=== PATIENT | male | born 1970 | race African-American/Black ===

== ENCOUNTER 2017-03-03 21:30 | Emergency (ER) | payer OTHER ==
[~2017-03-03] VITALS: Ht 182.9 cm; Wt 102.1 kg
[2017-03-03 21:40] VITALS: BP 110/61
--- NOTE | 2017-03-03 22:51 | NUR ---
PT TAKEN TO BED 3
--- NOTE | 2017-03-03 22:59 | NUR ---
46 Y/O M W/C/O RT ELBOW PAIN, FOR 3 WEEKS NO TRAUMA NOR INJURY. NO S/S OF DISTRESS NOTED. ER MD MADE AWARE.
--- NOTE | 2017-03-03 23:02 | NUR ---
Dr. Paz evaluating patient at bedside.
[2017-03-03] MEDS ORDERED: KETOROLAC 30 MG/ML VIAL IM ONE (23:05)
[2017-03-03] MEDS ORDERED: HYDROcodone/APAP 5/325 MG 1 TAB TAB PO ONE (23:05)
--- NOTE | 2017-03-04 00:15 | NUR ---
X-Ray at bedside.
[2017-03-04 00:47] VITALS: BP 119/75
--- NOTE | 2017-03-04 00:47 | NUR ---
Patient discharged with v/s stable. Written and verbal after care instructions given and explained. Patient alert, oriented and verbalized understanding of instructions. Ambulatory with steady gait. All questions addressed prior to discharge. ID band removed. Patient advised to follow up with PMD THIS WK OR RETURN TO ER IF CONDITION WORSENS. Rx of NAPROSYN AND TYLENOL WITH CODEINE No.3 given. Patient educated on indication of medication including possible reaction and side effects. Opportunity to ask questions provided and answered.
== END 2017-03-04 00:47 | disposition home or self-care (01) ==
LOC: MED 21:30
DX: M70.31 Other bursitis of elbow, right elbow (principal); Y93.89 Activity, other specified
CPT/HCPCS: 73080; 96372; 99284; J1885

== ENCOUNTER 2017-05-10 19:46 | Emergency (ER) | payer OTHER ==
[~2017-05-10] VITALS: Ht 182.9 cm; Wt 95.3 kg
[2017-05-10 20:15] VITALS: BP 136/84
--- NOTE | 2017-05-10 21:39 | NUR ---
TO ER OF2
--- NOTE | 2017-05-10 22:14 | NUR ---
Patient being evaluated by physician.
[2017-05-10 22:30] VITALS: BP 127/74
--- NOTE | 2017-05-10 22:30 | NUR ---
Patient discharged with v/s stable. Written and verbal after care instructions given and explained. Patient verbalized understanding. Ambulatory with steady gait. All questions addressed prior to discharge. Advised to follow up with PMD.
== END 2017-05-10 22:30 | disposition home or self-care (01) ==
LOC: MED 19:46
CPT/HCPCS: 12001; 99283